=== PATIENT | male | born 1945 | race Caucasian/White ===

== ENCOUNTER 2020-05-31 18:04 | Inpatient (IN) | payer OTHER ==
[~2020-05-31] VITALS: Ht 172.7 cm; Wt 74.8 kg
[2020-05-31 18:05] VITALS: BP 141/80
[2020-05-31 19:12] LABS: HEMOGLOBIN 10.9 gm/dL (14.0-18.0); RDW 14.3 % (10.5-14.5)
[2020-05-31 19:14] LABS: HEMATOCRIT 33.1 % (42.0-52.0); MCH 31.4 pg (26.0-34.0); MCV 95.3 fL (80.0-100.0); PLATELET COUNT 207 thou/uL (150-400); RBC 3.47 mil/uL (4.50-6.00)
[2020-05-31 19:18] LABS: CALCIUM 8.6 mg/dL (8.5-10.1); CREATININE 1.7 mg/dL (0.7-1.3)
[2020-05-31 19:24] LABS: ALBUMIN 2.3 g/dL (3.4-5.0); INR 3.3; PROTIME 34.3 Seconds (9.3-11.4); TOTAL BILIRUBIN 0.2 mg/dL (0.2-1.0); TOTAL PROTEIN 7.1 g/dL (6.4-8.2)
[2020-05-31 19:40] LABS: ABSOLUTE NEUTROPHILS 10.4 thou/uL (1.4-8.2); ANISOCYTOSIS 1+
[2020-05-31 20:10] LABS: URINE BILIRUBIN NEGATIVE (Negative); URINE BLOOD 2+ (Negative); URINE CLARITY SL CLOUDY; URINE COLOR YELLOW; URINE GLUCOSE-RANDOM* NEGATIVE (Negative); URINE KETONES NEGATIVE (Negative); URINE NITRITE-REFLEX NEGATIVE (Negative); URINE PROTEIN (DIPSTICK) 2+ (Negative); URINE UROBILINOGEN 0.2 E.U./dl (0.2-1.0)
[2020-05-31 20:13] LABS: URINE LEUKOCYTES-REFLEX 2+ (Negative)
[2020-05-31 20:20] LABS: BACTERIA-REFLEX >30 Many /HPF (None Seen); CASTS None Seen /LPF (None Seen); SQUAMOUS 0-3 Few /LPF (0-3); URINE WBC-REFLEX >25 Many /HPF (0-5)
[2020-05-31 20:21] LABS: CRYSTALS None Seen /LPF (None Seen); URINE RBC 0-2 Rare /HPF (0-2); WBC CLUMPS Few (None Seen)
[2020-05-31 22:15] VITALS: BP 119/59
[2020-05-31 23:00] VITALS: BP 110/60
[2020-05-31 23:43] VITALS: BP 151/75
[2020-06-01] MEDS ORDERED: CARBAMAZEPINE400 M1 PO (01:24)
[2020-06-01] MEDS ORDERED: NORVASC 2.5 MG2.5 M1 PO (01:24)
[2020-06-01] MEDS ORDERED: COREG12.5 MG PO (01:25)
[2020-06-01] MEDS ORDERED: DIVALPROEX SOD500 M1 PO (01:26)
[2020-06-01] MEDS ORDERED: IRON325 M1 PO (01:26)
[2020-06-01] MEDS ORDERED: METHIMAZOLE5 MG PO (01:27)
[2020-06-01] MEDS ORDERED: COZAAR 25 MG TA25 M2 PO (01:27)
[2020-06-01] MEDS ORDERED: MYSOLINE50 MG PO (01:28)
[2020-06-01] MEDS ORDERED: QUETIAPINE FUM300 MG PO (01:29)
[2020-06-01] MEDS ORDERED: VITAMIN D310 MC2 PO (01:31)
[2020-06-01] MEDS ORDERED: WARFARIN SODIUM1 MG PO (01:33)
[2020-06-01] MEDS ORDERED: WARFARIN SODIUM2 MG PO (01:34)
[2020-06-01] MEDS ORDERED: DRY MOUTH45 ML PO (01:35)
[2020-06-01] MEDS ORDERED: OMEPRAZOLE 20 M20 M1 PO (01:36)
--- NOTE | 2020-06-01 02:14 | NUR ---
PT AOX2, TO PERSON AND TIME, PT RESPONDS APPROPRIATELY TO PROMPTS. PT LETHARGIC UPON ASSESSMENT. PT DENIES PAIN AND SOB WHILE ON 2L O2 VIA NC. PT NOTED TO HAVE WEAKNESS AND FATIGUE WHEN NIH ASSESSMENT CONDUCTED. NIH OF 3. PT NOTED TO HAVE 1+ EDEMA TO BLE. FREQUENT REPOSITIONING ENCOURAGED, PT NOTED TO ASSIST WITH REPOSITIONING. PT WITH FLUIDS INFUSING ALONG WITH ANTIBIOTICS. REVIEWED XRAY AND ED PHYSCIAN NOTES, NOTIFIED ONCALL REFUSE DRIVER, RECEIVED ORDERS TO STOP FLUIDS, EMAR TO BE UPDATED. FLUIDS STOPPED AT 0200 WITH 100ML OF NS INFUSED. PT AWAKENS WITH CONFUSION, EASY TO REDIRECT. PT ENCOURAGED TO NOTIFY STAFF FOR ALL NEEDS, CALL LIGHT WITHIN REACH, BED ALARM ON, BED IN LOWEST POSITION, FREQUENT MONITORING WILL CONTINUE.
[2020-06-01 03:25] VITALS: BP 138/69
[2020-06-01 06:18] LABS: HEMOGLOBIN 9.8 gm/dL (14.0-18.0); MCH 31.3 pg (26.0-34.0); MCHC 32.5 g/dL (28.0-37.0); MCV 96.3 fL (80.0-100.0); RBC 3.12 mil/uL (4.50-6.00); RDW 14.1 % (10.5-14.5); WBC 8.3 thou/uL (4.0-11.0)
[2020-06-01 06:33] LABS: INR 2.8; PROTIME 28.4 Seconds (9.3-11.4)
[2020-06-01 06:44] LABS: CALCIUM 8.2 mg/dL (8.5-10.1); CREATININE 1.4 mg/dL (0.7-1.3); POTASSIUM 4.1 mmol/L (3.5-5.1)
[2020-06-01 07:47] VITALS: BP 152/78
--- NOTE | 2020-06-01 07:55 | EKG ---
[facility] [place] [address] ELECTROCARDIOGRAM REPORT Name: PRASHANTH DIGGS Room #: 355- ADM IN M.R.#: [id number] Admission: 05/31/20 Attend Phys: Chip Spear Discharge: Date of : 45 Report #: [id number] THIS REPORT FOR: cc: Feliciano Winter MD, Michael H. MD Santiago,Rudi VASQUEZ [facility] ~ THIS REPORT FOR: //name// [facility] ED Test Date: 2020-05-31 Test Time: 18:46:55 Pat Name: PRASHANTH DIGGS Department: Room: [facility] Gender: M [employer] Crewmember: kf : 1945 Requested By: Cale Kirkpatrick Order Number: [id number] MD: Rudi Andino Measurements Intervals [place] Rate: 98 P: 17 NH: 162 QRS: -54 QRSD: 124 T: 8 QT: 342 QTc: 437 Interpretive Statements Sinus tachycardia Ventricular trigeminy Probable left atrial enlargement RBBB and LAFB Left ventricular hypertrophy Baseline wander in lead(s) II,aVR No previous ECG available for comparison Electronically Signed On 06-01-2020 7:54:56 CDT by Rudi Andino [email or web address] <ELECTRONICALLY SIGNED> By: Rudi Andino MD, FACC 06/01/20 0754 [id number] [id number] Rudi Andino MD, [facility] /EPI
--- NOTE | 2020-06-01 10:19 | NUR ---
WOUND CONSULT; THE RN TODAY STATES THAT THE CONSULT WAS ENTERED IN ERROR THERE ARE NO WOUNDS. I INSTRUCTED THE RN TO RECONSULT IF NEEDED.
--- NOTE | 2020-06-01 10:47 | NUR ---
Nutrition: Assessing for low Fahad score entry of 11. Admit: CVA, UTI, FIDEL. Hx includes seizure disorder, HTN, HLD, GERD, sexual aggression/psychosis, and anemia. Pt from SNF where he fed self independently. Pt currently on a heart healthy diet- but no meals yet recorded due to newly admitted. 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 Fahad score low likely due to documentation of bedfast, very limited mobility and limited sensory perception. Pt noted to be confused, alert to self/staff per EMR. Pt has no wounds, skin all intact. Do not anticipate any immediate nutrition needs as pt without any recent weight change, at baseline prior to yesterday per EMR and at healthy weight of 165# and BMI 25.1 kg/m2. Keep as low nutrition risk, reassess if PO declines.
[2020-06-01 11:15] VITALS: BP 122/64
--- NOTE | 2020-06-01 13:11 | 2DMMODE ---
[facility] [place] [address] 2 D/M-MODE ECHOCARDIOGRAM Name: PRASHANTH DIGGS Room #: 355-P ADM IN M.R.#: [id number] Admission: 05/31/20 Attend Phys: Chip Spear Discharge: Date of : 45 Report #: [id number] THIS REPORT FOR: cc: Feliciano Winter MD,Rudi Sahu MD, MD [facility] ~ APPROVED REPORT Study performed: 06/01/2020 12:22:59 EXAM: Comprehensive 2D, Doppler, and color-flow Echocardiogram Patient Location: Bedside Room #: 355 Status: routine BSA: 1.86 HR: 56 bpm BP: 122/64 mmHg Rhythm: NSR Other Information Study Quality: Adequate Indications Cardiomegal per CXR. Hx: Seizures, HTN, HLP. 2D Dimensions RVDd: 39.09 mm IVSd: 12.67 (7-11mm) LVOT Diam: 23.25 (18-24mm) LVDd: 52.75 mm PWd: 9.87 (7-11mm) LVDs: 40.52 (25-40mm) Aortic Root: 35.09 mm Volumes Left Atrial Volume (Systole) Single Plane 4CH: 86.75 mL Single Plane 2CH: 79.31 mL LA ESV Index: 47.00 mL/m2 Aortic Valve AoV Peak Chevy.: 2.12 m/s AO Peak Gr.: 17.92 mmHg LVOT Max P.08 mmHg AO Mean Gr.: 8.43 mmHg AO V2 Mean: 1.38 m/s LVOT Max V: 0.88 m/s [facility] [address] [place] [address] 2 D/M-MODE ECHOCARDIOGRAM Name: PRASHANTH DIGGS Room #: 355-P [facility] IN .R.#: [id number] Admission: 05/31/20 Attend Phys: Chip Lowe Oct Discharge: Date of : 45 Report #: [id number] AO V2 VTI: 42.13 cm JULISA Vmax: 1.76 cm2 Mitral Valve E/A Ratio: 0.6 MV Decel. Time: 374.02 ms MV E Max Chevy.: 0.45 m/s MV A Chevy.: 0.81 m/s MV PHT: 108.47 ms IVRT: 115.34 ms Pulmonary Valve PV Peak Chevy.: 1.11 m/s PV Peak Gr.: 4.94 mmHg Pulmonary Vein P Vein S: 0.49 m/s P Vein A: 0.31 m/s P Vein D: 0.24 m/s P Vein A Dur.: 106.1 msec P Vein S/D Ratio: 2.04 Tricuspid Valve TR Peak Chevy.: 2.23 m/s RAP Estimate: 5.00 mmHg TR Peak Gr.: 20.00 mmHg PA Pressure: 25.00 mmHg Left Ventricle The left ventricle is normal size. Mild basal septal hypertrophy is present. Left ventricular systolic function is normal. LVEF is 55%. Mild diastolic dysfunction is present. Right Ventricle The right ventricle is normal size. The right ventricular systolic function is normal. Atria Left atrium is moderately dilated. The right atrium size is normal. Aortic Valve Aortic valve is thickened and calcified. Mild aortic regurgitation. There is mild valvular aortic stenosis. Calculated aortic valve area is 1.8 cm2 with maximum pressure gradient of 18 mmHg and mean pressure gradient of 8 mmHg. Mitral Valve Mitral valve leaflets are mildly thickened. Mild to moderate mitral regurgitation. No evidence of mitral valve stenosis. [facility] [address] [place] [address] 2 D/M-MODE ECHOCARDIOGRAM Name: PRASHANTH DIGGS Room #: 355-P [facility] IN .R.#: [id number] Admission: 05/31/20 Attend Phys: Chip Ortiz Discharge: Date of : 45 Report #: [id number] Tricuspid Valve The tricuspid valve is normal in structure. Trace tricuspid regurgitation. Estimated PAP is 25mmHg. Pulmonic Valve The pulmonary valve is normal in structure. Trace pulmonic regurgitation. Great Vessels The aortic root is normal in size. Ascending aorta is not well visualized. IVC is normal in size and collapses >50% with inspiration. Pericardium There is no pericardial effusion. <Conclusion> Normal left ventricle size with mild basal septal hypertrophy Preserved ejection fraction EF of 55% Mild left atrial enlargement Mild to moderate central mitral valve insufficiency Moderate aortic valve calcification Mild aortic valve stenosis, aortic valve area estimated 1.8 cm and a mean gradient of 8 mmHg Trace of tricuspid valve insufficiency Pulmonary artery systolic pressure estimated at 25 mmHg No pericardial effusion <ELECTRONICALLY SIGNED> By: Rudi Andino MD, FACC 06/01/201310 10 10 Rudi Andino MD, FACC /INF
[2020-06-01 15:22] VITALS: BP 138/74
--- NOTE | 2020-06-01 16:32 | NUR ---
ASSUMED CARE APPROX 0700. PT ALERT AND ORIENTED X3. ASSESSMENTS CHARTED AND VSS. PT AFEBRILE THIS SHIFT. NO SIGNS OF ACUTE STROKE SXS. PT DENIES ACUTE PAIN. ON 2LNC W/O SIGNS OF DISTRESS NOTED. PT SWALLOWNIG W/O COMPLICATIONS. PT'S SON/DPOA, YOLETTE, UPDATED ON STATUS. ISOLATION D/C'D PER JEANNIE MARQUIS. PT SLOWLY PROGRESSING TOWARDS PLAN OF CARE GOALS.
[2020-06-01 19:38] VITALS: BP 154/83
--- NOTE | 2020-06-01 22:30 | NUR ---
PT RESTING IN BED. ASKED FOR TV TO BE TURNED UP. PT HAS GOOD EYE CONTACT, MUMBLED SPEECH AT TIMES. BED ALARM ON. OXYGEN, MIKE AND SCDS INTACT. PT COMPLIANT WITH HS MEDS AND SNACK. PT NEEDED ASSISTANCE WITH SNACK AND WATER. PT POINTED AT HIS PENIS AND ASKED WHAT THE TUBE PLACED WAS FOR. PT EDUCATED RE MIKE. 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 FULL MOVEMENT WITH BLE. BED ALARM ON.
[2020-06-02 04:42] VITALS: BP 173/85
[2020-06-02 08:00] VITALS: BP 142/67
[2020-06-02 11:09] LABS: INR 1.9; PROTIME 19.5 Seconds (9.3-11.4)
[2020-06-02 11:15] LABS: ANION GAP 10 mmol/L (7-16); BUN 16 mg/dL (7-18); CHLORIDE 108 mmol/L (98-107); CO2 23 mmol/L (21-32); CREATININE 1.3 mg/dL (0.7-1.3); GLUCOSE 121 mg/dL (74-106); POTASSIUM 4.1 mmol/L (3.5-5.1); SODIUM 141 mmol/L (136-145)
[2020-06-02 11:29] VITALS: BP 141/71
[2020-06-02 11:37] LABS: CALCIUM 8.4 mg/dL (8.5-10.1); CHOLESTEROL 121 mg/dL (<200); HDL CHOLESTEROL 19 mg/dL (>40); LDL CHOLESTEROL 73 mg/dL (<100); TC:HDL 6.4 Ratio (Not establshd); TRIGLYCERIDE 149 mg/dL (<150); VLDL 30 mg/dL (<40)
--- NOTE | 2020-06-02 14:51 | NUR ---
PT CARE ASSUMED AT 0700, PT ALERT TO SELF, CONFUSED AND [place]. DENIES ANY PAIN, NAUSEA AND VOMITTING. PT IS ON 2L OXYGEN, O2 SAT WNL, NO SIGNS OF DISTRESS NOTED. PT IS UP WITH ONE ASSIST. FALL PRECAUTIONS IN PLACE, CALL LIGHT IN PLACE, BED AT LOWEST LEVELW ITH ALARM ON. WILL CONTINUE TO MONITOR.
--- NOTE | 2020-06-02 15:33 | NUR ---
CALL FROM [place] AUTHORIZING EPISODE OF CARE [place]ER [place] TO POINT OF MEDICAL STABILITY, AT WHICH TIME NEED TO CALL [facility] [phone] FOR BED AVAILABILITY. IF BED AVAILABLE, PT/DECISION MAKER MAY CHOOSE TO TRANSFER TO [facility]. CALLED TRANSFER RN EARLIER WHO STATES TELE BED AVAILABLE. CHECKED WITH DR. VUONG WHO CONFIRMS PT STABLE FOR TRANSFER. SPOKE WITH PT'S SON/GUARDIAN YOLETTE DIGGS [phone]. EXPLAINED OPTION OF STAYING AT [facility] UNDER MEDICARE BENEFIT (EXPLAINED MEDICARE COVERAGE ) VS TRANSFER TO [facility] FOR CARE COVERED AT 100%). YOLETTE STATES PT IS FOLLOWED AT OR AND CHOOSES TRANSFER TO [facility]. YOLETTE'S SIGNATURE IS REQUIRED ON EMTALA FORM AND FORM SCANNED AND EMAILED TO YOLETTE FOR SIGNATURE AND RETURN EMAIL TO ME. UPDATED 3W MANAGER WOUND CM AND DC SUPERVISOR CLAIMS, WHO WILL REQUEST CHART COPY AND COMPLETE [facility] FORM. VM LEFT FOR [facility] RN AROUND 1525 TO CONFIRM TRANSFER AND WAITING FOR RETURN CALL. EL
[2020-06-02 15:45] VITALS: BP 125/66
--- NOTE | 2020-06-02 16:49 | NUR ---
FAXED CLINICAL UPDATE TO [facility] RECEIVED CONFIRMATION AND LEFT MSG WITH ADM.
--- NOTE | 2020-06-02 18:52 | NUR ---
PT HAS AN ORDER FOR A TRANSFER TO [facility]. REPORT GIVEN TO MARIAH LY. TRANSPORTATION WILL BE COMING FOR PT AROUND 1929. PT SON AWARE. HANDOFF GIVEN TO MARIAH NG WHILE AWAITING FOR TRANSPORT.
--- NOTE | 2020-06-02 19:15 | NUR ---
CALLED PT SON AND UPDATED HIM ABOUT PT TRANSFER.
[2020-06-02 19:41] VITALS: BP 148/69
--- NOTE | 2020-06-02 21:13 | NUR ---
PT PICKED BY EMS STAFF AT THIS TIME. HS MEDS GIVEN PRIOR TO DC.
== END 2020-06-02 21:14 | DRG 871 ==
LOC: ER 18:04 → 3W 21:18 → EROBS 21:18 → 3W 23:40
PROVIDERS: Emergency Medicine; Nurse Practitioner Family; ADMIT Hospitalist; ATTEND Hospitalist
DX: A41.9 Sepsis, unspecified organism (principal); G92 Toxic encephalopathy; N39.0 Urinary tract infection, site not specified; N17.9 Acute kidney failure, unspecified; D68.9 Coagulation defect, unspecified; I10 Essential (primary) hypertension; E78.5 Hyperlipidemia, unspecified; K21.9 Gastro-esophageal reflux disease without esophagitis; G40.909 Epilepsy, unspecified, not intractable, without status epilepticus; F29 Unspecified psychosis not due to a substance or known physiological condition; Z20.828 Contact with and (suspected) exposure to other viral communicable diseases; Z86.73 Personal history of transient ischemic attack (TIA), and cerebral infarction without residual deficits; Z79.899 Other long term (current) drug therapy
CPT/HCPCS: 10879